=== PATIENT | male | born 1935 ===

== ENCOUNTER 2017-10-07 05:44 | Observation (INO) | payer MEDICARE ==
[2017-08-25 10:09] VITALS: BMI 22.8
[2017-10-07] MEDS ORDERED: Lidocaine 1%/Epinephrine 1:100000 30 ml vial IJ STA (07:33)
[2017-10-07] MEDS ORDERED: Bupivacaine HCl 0.25% PF (10 ml) Inj ONE (07:36)
[2017-10-07] MEDS ORDERED: ceFAZolin IV 2 gm in Dextrose 2 GM/50 ML BAG IVPB ONE (07:36)
[2017-10-07] MEDS ORDERED: Midazolam 2 MG/2 ML VIAL ONE (07:37)
[2017-10-07] MEDS ORDERED: Propofol 10 mg/ml Inj (20 ML) ONE (07:37)
[2017-10-07] MEDS ORDERED: Succinylcholine Chloride 20 mg/ml Syr (5 ml) IV ONE (07:39)
[2017-10-07] MEDS ORDERED: Sodium Chloride 0.9% 20 ML IV ONE (09:14)
[2017-10-07] MEDS ORDERED: Neostigmine Methylsulfate 3mg/3ml Syringe IV ONE (12:03)
[2017-10-07] MEDS ORDERED: Oxycodone/Acetaminophen 5/325 mg Tab PO ONE (12:28)
[2017-10-07] MEDS: HYDROmorphone 0.5 mg/0.5 ml ISec IVP PRN ×2 (13:11→15:21)
[2017-10-07] MEDS: Oxycodone/Acetaminophen 5/325 mg Tab PO PRN (22:28)
[2017-10-08 02:29] VITALS: RESP 20
[2017-10-08] MEDS: Oxycodone/Acetaminophen 5/325 mg Tab PO PRN ×3 (02:49→13:51)
--- NOTE | 2017-10-08 06:42 | CP.PCM.PN ---
Subjective - Date & Time of Evaluation Date of Evaluation: 10/08/17 Time of Evaluation: 06:45 - Subjective Subjective: General surgery progress note for Dr. Neal-Dayana Langston, PGY-1 Pt S & E at bedside. Pt reports continued trouble with weak urine stream overnight- put out 650 cc UOP. States he has lower ab pain/suprapubic pain. Woudl feel more comfortable staying for continued pain management. Objective - Vital Signs/Intake and Output Vital Signs (last 24 hours): Temp Pulse Resp BP Pulse Ox 97.5 F L 77 20 146/80 97 10/08/17 00:00 10/08/17 00:00 10/08/17 00:00 10/08/17 00:00 10/08/17 00:00 Intake and Output: 10/07/17 10/08/17 18:59 06:59 Intake Total 2370 100 Output Total 525 120 Balance 1845 -20 - Medications Medications: Current Medications Amlodipine Besylate (Norvasc) 5 mg PO DAILY [facility] Ibuprofen (Motrin Tab) 400 mg PO Q6 PRN PRN Reason: Fever >100.4 F Oxycodone/Acetaminophen (Percocet 5/325 Mg Tab) 1 tab PO Q4 PRN PRN Reason: Pain, moderate (4-7) Stop: 10/10/17 18:53 Last Admin: 10/08/17 02:49 Dose: 1 tab Pneumococcal Polyvalent Vaccine (Pneumovax 23 Vaccine) 0.5 ml IM .ONCE ONE Stop: 10/10/17 10:01 Sevelamer Carbonate (Renvela) 800 mg PO BID [facility] - Constitutional Appears: Non-toxic, No Acute Distress - Head Exam Head Exam: ATRAUMATIC, NORMAL INSPECTION, NORMOCEPHALIC - Eye Exam Eye Exam: EOMI, Normal appearance - ENT Exam ENT Exam: Mucous Membranes Moist, Normal Exam - Neck Exam Neck Exam: Full ROM, Normal Inspection - Respiratory Exam Respiratory Exam: NORMAL BREATHING PATTERN - Cardiovascular Exam Cardiovascular Exam: REGULAR RHYTHM, +S1, +S2 - GI/Abdominal Exam GI & Abdominal Exam: Guarding (LLQ), Soft, Tenderness (over surgical incision sites and suprapubic). absent: Distended, Firm Additional comments: surgical sites with dressings in place over abdomen- clean/dry-intact - Extremities Exam Extremities Exam: Normal Inspection. absent: Pedal Edema - Neurological Exam Neurological Exam: Alert, Awake, Oriented x3 - Psychiatric Exam Psychiatric exam: Anxious, Normal Affect - Skin Skin Exam: Dry, Intact, Normal Color, Warm Assessment and Plan - Assessment and Plan (Free Text) Assessment: 82M POD#1 s/p robotic repair of bilateral inguinal hernias with mesh and umbilical hernia repair Plan: cont pain mgmt encourage IS use OOBTC Encourage ambulation Will DW attending Ivis, PGY-1
[2017-10-08] MEDS: Enoxaparin 40 mg Syringe SC SCH (13:49)
[2017-10-08 13:55] LABS: BASO % 0.2 % (0.0-2.0); EOS % 0.1 % (0.0-4.0); HEMOGLOBIN 13.6 g/dL (12.0-18.0); LYMPH % 8.7 % (20.0-40.0); MEAN CELL VOLUME 87.8 fL (80.0-94.0); MEAN CORPUSCULAR HEMOGLOBIN 30.3 pg (27.0-31.0); MEAN CORPUSCULAR HGB CONC 34.5 g/dL (33.0-37.0); MEAN PLATELET VOLUME 9.6 fL (7.2-11.7); MONO # 0.5 K/uL (0.0-0.8); MONO % 4.8 % (0.0-10.0); NEUT # 9.5 K/uL (1.8-7.0); NEUT % 86.2 % (50.0-75.0); PLATELET COUNT 141 K/uL (130-400); RBC 4.49 Mil/uL (4.40-5.90); RED CELL DISTRIBUTION WIDTH 13.7 % (11.5-14.5)
[2017-10-08 14:29] LABS: BANDS 6 % (0-2); LYMPHOCYTE 10 % (20-40); MONOCYTE 6 % (0-10); NEUTROPHIL 78 % (50-75); TOTAL CELLS COUNTED 100
[2017-10-08 14:30] LABS: PLATELET ESTIMATE NORMAL (NORMAL)
[2017-10-08 14:33] LABS: OVALOCYTES SLIGHT
[2017-10-08 17:14] LABS: ALBUMIN 3.5 g/dL (3.5-5.0); CALCIUM 8.3 mg/dl (8.6-10.4)
--- NOTE | 2017-10-09 01:00 | OP ---
PROCEDURE DATE: 10/07/2017 PREOPERATIVE DIAGNOSES: 1. Right inguinal hernia. 2. Left inguinal hernia. 3. Umbilical hernia. POSTOPERATIVE DIAGNOSES: 1. Right inguinal hernia. 2. Left inguinal hernia. 3. Umbilical hernia. 4. Lipoma of the right spermatic cord. 5. Lipoma of the spermatic cord on left side. PROCEDURES DONE: 1. Robotic right inguinal hernia repair with a mesh. 2. Robotic excisional of lipoma of the cord, right side. 3. Robotic left inguinal hernia repair with a mesh. 4. Robotic excisional lipoma of the cord on the left side. 5. Robotic umbilical hernia repair with mesh. 6. Laparoscopic bilateral TAP block placement. SURGEON: Rodger Neal MD MANAGER EMERGENCY DEPARTMENT: CELINA Olivares and Bony Evans, PGY-4 resident. TYPE OF ANESTHESIA: General endotracheal tube anesthesia. ESTIMATED BLOOD LOSS: Around 20 mL. DRAINS: None. PATHOLOGY: 1. Lipoma of the cord of the left side. 2. Lipoma of the cord of the right side. 3. Umbilical hernial sac and content was sent for the pathology. COMPLICATIONS: None. INTRAOPERATIVE FINDINGS: The patient had a complete right inguinal hernia as well as a complete left indirect inguinal hernia and the patient also had a large lipoma of the cord on the left side and the patient had a small lipoma of the cord on the right side and the patient had a 2 x 2 cm umbilical hernia defect containing large amount of preperitoneal fat. DESCRIPTION OF PROCEDURE: On intraoperative steps, this 82-year-old male was diagnosed with bilateral inguinal hernia with umbilical hernia and the patient was consented for the robotic bilateral inguinal hernia repair with a mesh, with umbilical hernia. Patient was brought to the OR, placed supine on operating table. After induction of the anesthesia, abdomen was prepped and draped in usual sterile fashion. The Jordan catheter was placed. A 5-mm incision was made in the left upper quadrant using the Visiport technique. Using the Visiport technique, the pelvic cavity was entered. Pneumo was cerated. Two 8-mm ports were placed in the left flank and left lower quadrant and another port was placed in the supraumbilical region and another port was placed in the right upper quadrant. Now the robot was brought in. Camera arm as well as arm 1 and arm 2 were docked. First, a peritoneal dissection was done from the left ASIS up to the right ASIS and the peritoneum was dissected in the midline up to the space of Retzius, laterally to the lateral abdominal wall on the right side as well as the left side and the dissection was carried down on the right side to dissect the peritoneal sac from the surrounding structures and vas deferens as well as spermatic cord vessel. The complete removal of the sac was done and the proper hemostasis was achieved and inferior dissection of the sac was done up to the peritoneal reflection and now the similar dissection was done on the left side and the hernial sac was dissected free from the spermatic cord vessel and the vas deferens and inferior dissection done. Now the patient had a large lipoma of the cord on the left side that was reduced and dissected from the spermatic cord structures and it was sent off the table for pathology. The patient also had a lipoma of the cord on the right side that was also excised and it was sent off the table for pathology. Proper hemostasis was achieved and now the right anatomical mesh was placed and the mesh was implanted properly and the left anatomical mesh was placed and the mesh was implanted properly. After that the peritoneum was sutured with a 2-0 Vicryl V-Loc continuous sutures and after that the robot was undocked and redocked on the left flank, left lower quadrant, as well as left upper quadrant ports and the umbilical hernial defect was identified and hernial content and the sac was reduced back into the peritoneal cavity and it was sent off the table for pathology. The defect was closed with a #1 Prolene V-Loc suture in a continuous manner in 2 layers and a 7 cm circular mesh was placed and mesh was implanted with a tacker and after proper implantation of the mesh, and after undocking of the robot, the laparoscopic bilateral TAP block was given. The right and left side 30 mL of Marcaine was given and after a proper TAP block, all the ports were taken out under vision and pneumo was deflated. The umbilical port site was closed in 2 layers as well as all the port sites were closed in 2 layers, subcu with a 2-0 Vicryl, skin with a 4-0 Monocryl and dry sterile dressing was applied. The patient tolerated the procedure well. Count of the instrument and gauze was correct. There was no apparent complication. The patient was extubated in the OR and sent to the Postanesthesia Care Unit in stable condition. Rodger Neal MD 10/09/2017 [facility]
[2017-10-09] MEDS: Oxycodone/Acetaminophen 5/325 mg Tab PO PRN (06:35)
[2017-10-09 08:51] LABS: HEMOGLOBIN 13.1 g/dL (12.0-18.0); MEAN CELL VOLUME 87.6 fL (80.0-94.0); MEAN CORPUSCULAR HEMOGLOBIN 30.1 pg (27.0-31.0); MEAN CORPUSCULAR HGB CONC 34.4 g/dL (33.0-37.0); MEAN PLATELET VOLUME 9.5 fL (7.2-11.7); RBC 4.35 Mil/uL (4.40-5.90); RED CELL DISTRIBUTION WIDTH 13.5 % (11.5-14.5)
[2017-10-09] MEDS ORDERED: Influenza Vaccine 60 mcg/0.5 mL SYR (4YR UP) IM ONE ×2 (09:00→09:45)
[2017-10-09 09:37] LABS: ALB/GLOB RATIO 0.9 (1.0-2.1); ALBUMIN 3.8 g/dL (3.5-5.0); CALCIUM 8.9 mg/dl (8.6-10.4)
[2017-10-09] MEDS: Enoxaparin 40 mg Syringe SC SCH (09:50)
--- NOTE | 2017-10-09 10:12 | CP.PCM.PN ---
<Juaquin Brandon - Last Filed: 10/09/17 10:09> Subjective - Date & Time of Evaluation Date of Evaluation: 10/09/17 Time of Evaluation: 10:10 - Subjective Subjective: Surgery Pt s&e. NAEON. Denies F/C/N/V/D/CP/SOB. TOlerating diet. Pain controlled. Objective - Vital Signs/Intake and Output Vital Signs (last 24 hours): Temp Pulse Resp BP Pulse Ox 98.6 F 94 H 20 149/79 95 10/09/17 08:00 10/09/17 08:00 10/09/17 08:00 10/09/17 08:00 10/09/17 08:00 Intake and Output: 10/09/17 10/09/17 06:59 18:59 Intake Total 480 Balance 480 - Medications Medications: Current Medications Amlodipine Besylate (Norvasc) 5 mg PO DAILY [facility] Last Admin: 10/09/17 09:50 Dose: 5 mg Enoxaparin Sodium (Lovenox) 40 mg SC DAILY [facility] Last Admin: 10/09/17 09:50 Dose: 40 mg Ibuprofen (Motrin Tab) 400 mg PO Q6 PRN PRN Reason: Fever >100.4 F Oxycodone/Acetaminophen (Percocet 5/325 Mg Tab) 1 tab PO Q4 PRN PRN Reason: Pain, moderate (4-7) Stop: 10/10/17 18:53 Last Admin: 10/09/17 06:35 Dose: 1 tab Sevelamer Carbonate (Renvela) 800 mg PO BID [facility] Last Admin: 10/09/17 09:50 Dose: 800 mg - Labs Labs: 10/09/17 08:38 10/09/17 09:22 - Constitutional Appears: No Acute Distress - Head Exam Head Exam: ATRAUMATIC, NORMAL INSPECTION, NORMOCEPHALIC - Eye Exam Eye Exam: EOMI, Normal appearance, PERRL Pupil Exam: NORMAL ACCOMODATION, PERRL - ENT Exam ENT Exam: Mucous Membranes Moist, Normal Exam - Neck Exam Neck Exam: Full ROM, Normal Inspection. absent: Lymphadenopathy - Respiratory Exam Respiratory Exam: Clear to Ausculation Bilateral, NORMAL BREATHING PATTERN - Cardiovascular Exam Cardiovascular Exam: REGULAR RHYTHM, +S1, +S2. absent: Murmur - GI/Abdominal Exam GI & Abdominal Exam: Soft, Tenderness, Normal Bowel Sounds. absent: Distended, Firm, Guarding - Exam Exam: NORMAL INSPECTION - Extremities Exam Extremities Exam: Full ROM, Normal Capillary Refill, Normal Inspection. absent : Joint Swelling, Pedal Edema - Back Exam Back Exam: NORMAL INSPECTION - Neurological Exam Neurological Exam: Alert, Awake, CN II-XII Intact, Normal Gait, Oriented x3 - Psychiatric Exam Psychiatric exam: Normal Affect, Normal Mood - Skin Skin Exam: Dry, Intact, Normal Color, Warm Assessment and Plan - Assessment and Plan (Free Text) Assessment: POD 1 s/p robotic hernia repair -pain control -Ambulate -IS -Reg diet -Likely DC later today Will DW Dr. Neal <Rodger Neal - Last Filed: 10/09/17 15:57> Objective - Vital Signs/Intake and Output Vital Signs (last 24 hours): Temp Pulse Resp BP Pulse Ox 98.6 F 94 H 20 149/79 95 10/09/17 08:00 10/09/17 08:00 10/09/17 08:00 10/09/17 08:00 10/09/17 08:00 Intake and Output: 10/09/17 10/09/17 06:59 18:59 Intake Total 480 Balance 480 - Medications Medications: Current Medications Amlodipine Besylate (Norvasc) 5 mg PO DAILY [facility] Last Admin: 10/09/17 09:50 Dose: 5 mg Enoxaparin Sodium (Lovenox) 40 mg SC DAILY [facility] Last Admin: 10/09/17 09:50 Dose: 40 mg Ibuprofen (Motrin Tab) 400 mg PO Q6 PRN PRN Reason: Fever >100.4 F Oxycodone/Acetaminophen (Percocet 5/325 Mg Tab) 1 tab PO Q4 PRN PRN Reason: Pain, moderate (4-7) Stop: 10/10/17 18:53 Last Admin: 10/09/17 06:35 Dose: 1 tab Sevelamer Carbonate (Renvela) 800 mg PO BID [facility] Last Admin: 10/09/17 09:50 Dose: 800 mg - Labs Labs: 10/09/17 08:38 10/09/17 09:22 Attending/Attestation - Attestation I have personally seen and examined this patient.: Yes I have fully participated in the care of the patient.: Yes I have reviewed all pertinent clinical information, including history, physical exam and plan: Yes Notes (Text): Pt was seen and examined at bedside Agree with above note and assessment Pt is improving clinically Start Flomax DC plan local wound care Plan d.w pt in detail.
--- NOTE | 2017-10-09 11:16 | CP.PCM.CON ---
History of Present Illness - History of Present Illness History of Present Illness: Reason for consult: Maedical managment of HTN in post op pateint, 82M POD#1 s/p robotic repair of bilateral inguinal hernias with mesh and umbilical hernia repair HPI: Pt is a 82 year old male who has PMH significant for HTN, CKD who underwent Robotic inguinal hernia repair, pt chasidy any chest pain, shortness of breath, c/o mild pain in pot op area inguinal area is dressed. Past Patient History - Infectious Disease Hx of Infectious Diseases: None - Past Medical History & Family History Past Medical History?: Yes - Past Social History Smoking Status: Never Smoked - CARDIAC Hx Cardiac Disorders: Yes Hx Hypertension: Yes - PULMONARY Hx Respiratory Disorders: No - NEUROLOGICAL Hx Neurological Disorder: Yes Hx Dizziness: Yes (FROM LOW BP) - HEENT Hx HEENT Problems: No - RENAL Other/Comment: Right Kidney removed 3 years ago. 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, L total shoulder replacement reverse - ANESTHESIA Hx Anesthesia: Yes Hx Anesthesia Reactions: No Hx Malignant Hyperthermia: No Has any member of the family had a problem w/ anesthesia?: No Meds Allergies/Adverse Reactions: Allergies Allergy/AdvReac Type Severity Reaction Status Date / Time No Known Allergies Allergy Verified 09/13/16 09:08 - Medications Medications: Current Medications Amlodipine Besylate (Norvasc) 5 mg PO DAILY [facility] Last Admin: 10/09/17 09:50 Dose: 5 mg Enoxaparin Sodium (Lovenox) 40 mg SC DAILY [facility] Last Admin: 10/09/17 09:50 Dose: 40 mg Ibuprofen (Motrin Tab) 400 mg PO Q6 PRN PRN Reason: Fever >100.4 F Oxycodone/Acetaminophen (Percocet 5/325 Mg Tab) 1 tab PO Q4 PRN PRN Reason: Pain, moderate (4-7) Stop: 10/10/17 18:53 Last Admin: 10/09/17 06:35 Dose: 1 tab Sevelamer Carbonate (Renvela) 800 mg PO BID [facility] Last Admin: 10/09/17 09:50 Dose: 800 mg Physical Exam - Constitutional Appears: No Acute Distress - Head Exam Head Exam: ATRAUMATIC, NORMAL INSPECTION, NORMOCEPHALIC - Eye Exam Eye Exam: EOMI, Normal appearance, PERRL Pupil Exam: NORMAL ACCOMODATION, PERRL - Respiratory Exam Respiratory Exam: Clear to Auscultation Bilateral, NORMAL BREATHING PATTERN - Cardiovascular Exam Cardiovascular Exam: REGULAR RHYTHM - GI/Abdominal Exam GI & Abdominal Exam: Normal Bowel Sounds, Soft. absent: Tenderness - Rectal Exam Rectal Exam: Deferred - Neurological Exam Neurological exam: Alert, CN II-XII Intact, Oriented x3 - Skin Skin Exam: Dry Additional comments: senile turgor Results - Vital Signs Recent Vital Signs: Last Vital Signs Temp 98.6 F 10/09/17 08:00 Pulse 94 H 10/09/17 08:00 Resp 20 10/09/17 08:00 BP 149/79 10/09/17 08:00 Pulse Ox 95 10/09/17 08:00 - Labs Result Diagrams: 10/09/17 08:38 10/09/17 09:22 Labs: Laboratory Results - last 24 hr 10/08/17 10/08/17 10/09/17 13:52 16:52 08:38 WBC 11.0 H D 11.0 H RBC 4.49 4.35 L Hgb 13.6 13.1 Hct 39.4 38.1 MCV 87.8 87.6 MCH 30.3 30.1 MCHC 34.5 34.4 RDW 13.7 13.5 Plt Count 141 134 MPV 9.6 9.5 Neut % (Auto) 86.2 H Lymph % (Auto) 8.7 L [place] % (Auto) 4.8 Eos % (Auto) 0.1 Baso % (Auto) 0.2 Neut # (Auto) 9.5 H Lymph # (Auto) 1.0 [place] # (Auto) 0.5 Eos # (Auto) 0.0 Baso # (Auto) 0.0 Neutrophils % (Manual) 78 H Band Neutrophils % 6 H Lymphocytes % (Manual) 10 L Monocytes % (Manual) 6 Platelet Estimate Normal Ovalocytes Slight Sodium 135 Potassium 4.2 Chloride 99 Carbon Dioxide 25 Anion Gap 15 BUN 21 H Creatinine 1.4 Est GFR ( Amer) 59 Est GFR (Non-Af Amer) 49 Random Glucose 100 Calcium 8.3 L Total Bilirubin 0.7 AST 23 ALT 11 L D Alkaline Phosphatase 58 Total Protein 6.8 Albumin 3.5 Globulin 3.3 Albumin/Globulin Ratio 1.0 10/09/17 09:22 WBC RBC Hgb Hct MCV MCH MCHC RDW Plt Count MPV Neut % (Auto) Lymph % (Auto) [place] % (Auto) Eos % (Auto) Baso % (Auto) Neut # (Auto) Lymph # (Auto) [place] # (Auto) Eos # (Auto) Baso # (Auto) Neutrophils % (Manual) Band Neutrophils % Lymphocytes % (Manual) Monocytes % (Manual) Platelet Estimate Ovalocytes Sodium 137 Potassium 4.0 Chloride 100 Carbon Dioxide 26 Anion Gap 14 BUN 24 H Creatinine 1.6 H Est GFR ( Amer) 51 Est GFR (Non-Af Amer) 42 Random Glucose 103 Calcium 8.9 Total Bilirubin 0.8 AST 34 ALT 20 L D Alkaline Phosphatase 72 Total Protein 7.8 Albumin 3.8 Globulin 4.0 H Albumin/Globulin Ratio 0.9 L Assessment & Plan (1) HTN (hypertension) Status: Acute (2) CKD (chronic kidney disease) Status: Acute (3) S/P inguinal hernia repair Assessment and Plan: 82M POD#1 s/p robotic repair of bilateral inguinal hernias with mesh and umbilical hernia repair Plan: cont pain mgmt encourage IS use OOBTC Encourage ambulation Status: Acute
--- NOTE | 2017-10-09 11:20 | CP.PCM.PN ---
Subjective - Date & Time of Evaluation Date of Evaluation: 10/09/17 Time of Evaluation: 18:30 - Subjective Subjective: Pt seen and evalauted, feeling better, post op, B.P control, denies any hcest pain, shortness of breath, cough POD 1 s/p robotic hernia repair -pain control -Ambulate -IS -Reg diet -Likely DC later today Objective - Vital Signs/Intake and Output Vital Signs (last 24 hours): Temp Pulse Resp BP Pulse Ox 98.6 F 94 H 20 149/79 95 10/09/17 08:00 10/09/17 08:00 10/09/17 08:00 10/09/17 08:00 10/09/17 08:00 Intake and Output: 10/09/17 10/09/17 06:59 18:59 Intake Total 480 Balance 480 - Medications Medications: Current Medications Amlodipine Besylate (Norvasc) 5 mg PO DAILY [facility] Last Admin: 10/09/17 09:50 Dose: 5 mg Enoxaparin Sodium (Lovenox) 40 mg SC DAILY [facility] Last Admin: 10/09/17 09:50 Dose: 40 mg Ibuprofen (Motrin Tab) 400 mg PO Q6 PRN PRN Reason: Fever >100.4 F Oxycodone/Acetaminophen (Percocet 5/325 Mg Tab) 1 tab PO Q4 PRN PRN Reason: Pain, moderate (4-7) Stop: 10/10/17 18:53 Last Admin: 10/09/17 06:35 Dose: 1 tab Sevelamer Carbonate (Renvela) 800 mg PO BID [facility] Last Admin: 10/09/17 09:50 Dose: 800 mg - Labs Labs: 10/09/17 08:38 10/09/17 09:22 Assessment and Plan (1) HTN (hypertension) Status: Acute (2) CKD (chronic kidney disease) Status: Acute (3) S/P inguinal hernia repair Status: Acute
[2017-10-09] MEDS ORDERED: Enoxaparin 40 mg Syringe SC SCH (14:00)
[2017-10-10] MEDS: Enoxaparin 40 mg Syringe SC SCH (09:13)
[2017-10-10 09:34] VITALS: BP 122/70; PULSE 90; TEMP 98.2; O2SAT 96
[2017-10-10] MEDS ORDERED: Pneumococcal 23-Valent Vaccine IM ONE (10:00)
[2017-10-10] MEDS ORDERED: Influenza Vaccine 60 mcg/0.5 mL SYR (4YR UP) IM ONE (10:00)
--- NOTE | 2017-10-10 12:55 | CP.PCM.DIS ---
Provider - Provider Date of Admission: 10/07/17 18:52 Attending physician: Rodger Neal MD Primary care physician: Dr. Neal Consults: Internal medicine Time Spent in preparation of Discharge (in minutes): 35 Diagnosis - Discharge Diagnosis (1) Hx of umbilical hernia repair Status: Acute Hospital Course - Lab Results Lab Results: Most Recent Lab Values WBC 11.0 K/uL (4.8-10.8) H 10/09/17 08:38 RBC 4.35 Mil/uL (4.40-5.90) L 10/09/17 08:38 Hgb 13.1 g/dL (12.0-18.0) 10/09/17 08:38 Hct 38.1 % (35.0-51.0) 10/09/17 08:38 MCV 87.6 fL (80.0-94.0) 10/09/17 08:38 MCH 30.1 pg (27.0-31.0) 10/09/17 08:38 MCHC 34.4 g/dL (33.0-37.0) 10/09/17 08:38 RDW 13.5 % (11.5-14.5) 10/09/17 08:38 Plt Count 134 K/uL (130-400) 10/09/17 08:38 MPV 9.5 fL (7.2-11.7) 10/09/17 08:38 Neut % (Auto) 86.2 % (50.0-75.0) H 10/08/17 13:52 Lymph % (Auto) 8.7 % (20.0-40.0) L 10/08/17 13:52 [place] % (Auto) 4.8 % (0.0-10.0) 10/08/17 13:52 Eos % (Auto) 0.1 % (0.0-4.0) 10/08/17 13:52 Baso % (Auto) 0.2 % (0.0-2.0) 10/08/17 13:52 Neut # (Auto) 9.5 K/uL (1.8-7.0) H 10/08/17 13:52 Lymph # (Auto) 1.0 K/uL (1.0-4.3) 10/08/17 13:52 [place] # (Auto) 0.5 K/uL (0.0-0.8) 10/08/17 13:52 Eos # (Auto) 0.0 K/uL (0.0-0.7) 10/08/17 13:52 Baso # (Auto) 0.0 K/uL (0.0-0.2) 10/08/17 13:52 Neutrophils % (Manual) 78 % (50-75) H 10/08/17 13:52 Band Neutrophils % 6 % (0-2) H 10/08/17 13:52 Lymphocytes % (Manual) 10 % (20-40) L 10/08/17 13:52 Monocytes % (Manual) 6 % (0-10) 10/08/17 13:52 Platelet Estimate Normal (NORMAL) 10/08/17 13:52 Ovalocytes Slight 10/08/17 13:52 Sodium 137 mmol/L (132-148) 10/09/17 09:22 Potassium 4.0 mmol/L (3.6-5.2) 10/09/17 09:22 Chloride 100 mmol/L (98-107) 10/09/17 09:22 Carbon Dioxide 26 mmol/L (22-30) 10/09/17 09:22 Anion Gap 14 (10-20) 10/09/17 09:22 BUN 24 mg/dL (9-20) H 10/09/17 09:22 Creatinine 1.6 mg/dL (0.8-1.5) H 10/09/17 09:22 Est GFR ( Amer) 51 10/09/17 09:22 Est GFR (Non-Af Amer) 42 10/09/17 09:22 Random Glucose 103 mg/dL (75-110) 10/09/17 09:22 Calcium 8.9 mg/dl (8.6-10.4) 10/09/17 09:22 Total Bilirubin 0.8 mg/dL (0.2-1.3) 10/09/17 09:22 AST 34 U/L (17-59) 10/09/17 09:22 ALT 20 U/L (21-72) L D 10/09/17 09:22 Alkaline Phosphatase 72 U/L (38-126) 10/09/17 09:22 Total Protein 7.8 g/dL (6.3-8.3) 10/09/17 09:22 Albumin 3.8 g/dL (3.5-5.0) 10/09/17 09:22 Globulin 4.0 gm/dL (2.2-3.9) H 10/09/17 09:22 Albumin/Globulin Ratio 0.9 (1.0-2.1) L 10/09/17 09:22 - Hospital Course Hospital Course: 82M w/PMH sig for bilateral inguinal hernias and umbilical hernia- POD#3. Pt kept s/p robotic bilateral inguinal hernia repair with umbilical hernia repair on Tuesday due to pain control requirements and poor urination. Pt kept over the weekend with increased urine output on Flomax, pain well controlled. Pt stable and ready for discharge home with pain medications and Flomax- will follow up with Dr. Neal. Diagnosis bilateral inguinal hernias robotic bilateral inguinal hernia repair with mesh umbilical hernia repair HTN Discharge Exam - Head Exam Head Exam: ATRAUMATIC, NORMAL INSPECTION, NORMOCEPHALIC - Eye Exam Eye Exam: EOMI, Normal appearance - ENT Exam ENT Exam: Mucous Membranes Moist, Normal Exam - Neck Exam Neck exam: Full Rom - Respiratory Exam Respiratory Exam: NORMAL BREATHING PATTERN, UNREMARKABLE - Cardiovascular Exam Cardiovascular Exam: REGULAR RHYTHM, +S1, +S2 - GI/Abdominal Exam GI & Abdominal Exam: Soft, Tenderness (over surgical sites), Unremarkable. absent: Distended, Guarding, Hernia - Extremities Exam Extremities exam: normal inspection - Neurological Exam Neurological exam: Alert, Oriented x3 - Psychiatric Exam Psychiatric exam: Normal Affect, Normal Mood - Skin Skin Exam: Dry, Intact, Normal Color, Warm Additional comments: abdominal dressings clean/dry/intact Discharge Plan - Discharge Medications Prescriptions: Tamsulosin HCl [Flomax] 0.4 mg PO DAILY #14 cap.er.24h - Follow Up Plan Condition: GOOD Disposition: HOME/ ROUTINE Additional Instructions: Please follow up with Dr. Neal in the office in 1-2 weeks after discharge. If you take the pain medications at home, please take the stool softener at the same time. Ok to shower tomorrow, you may remove the outer larger bandaids from the surgical sites. Underneath are ster-stripes- these will fall off on their own, do not pull them off. Referrals: Rodger Neal MD [Staff Provider] -
== END 2017-10-10 15:20 | disposition home or self-care (01) ==
LOC: C.SDS 05:44 → C.5S 18:52
PROVIDERS: ADMIT Surgery Surgical Critical Care; ATTEND Surgery Surgical Critical Care
DX: K40.20 Bilateral inguinal hernia, without obstruction or gangrene, not specified as recurrent (principal); K42.9 Umbilical hernia without obstruction or gangrene; D17.6 Benign lipomatous neoplasm of spermatic cord; G89.18 Other acute postprocedural pain; I12.9 Hypertensive chronic kidney disease with stage 1 through stage 4 chronic kidney disease, or unspecified chronic kidney disease; N18.9 Chronic kidney disease, unspecified; Z90.5 Acquired absence of kidney; Z90.49 Acquired absence of other specified parts of digestive tract; Z23 Encounter for immunization
CPT/HCPCS: 36415; 49650; 49652; 80053; 85025; 85027; 88302; 88304; 90674; 97116; 97161; C1781; G0008; G0378; G8978; G8979; G8980; J0690; J1170; J1650; J2001; J2250; J2704; J2710; J3010

== ENCOUNTER 2017-10-12 17:28 | Emergency (ER) | payer MEDICARE ==
[2017-10-12 17:28] VITALS: BMI 22.8
--- NOTE | 2017-10-12 17:58 | C.PDOC ---
History Of Present Illness 82 y/o M c PMHx HTN, recent robotic bilateral inguinal hernia repair, umbilical hernia repair p/w dizziness x 1 day. Patient states that he is having intermittent room moving sensation today, feeling unsteady. He states he does not have the symptoms currently because he is not moving around. Denies fever, chills, trauma, ear pain, vomiting. He also notes that he is urinating a very small amount. Discharge summary reviewed, patient appeared to have difficulty with urination that protracted his hospitalization. Patient denies any abdominal pain out or proportion to what would be expected after surgery. Time Seen by Provider: 10/12/17 17:34 Chief Complaint (Nursing): Dizziness/Lightheaded Past Medical History Vital Signs: Last Vital Signs Temp 98.9 F 10/12/17 17:31 Pulse 93 H 10/12/17 17:31 Resp 20 10/12/17 17:31 BP 130/74 10/12/17 17:31 Pulse Ox 99 10/12/17 17:58 - Medical History PMH: Fractures (LEFT SHOULDER/LEFT LEG NON DISPLACED ACCIDENT 06/25/16), HTN Surgical History: Cholecystectomy - [facility] Procedures HOME MANAGEMENT TREATMENT USING ASSIST EQUIPMENT (09/25/16) REPLACE OF L SHOULDER JT WITH REV BL & SOCKT, OPEN APPROACH (09/22/16) REPOSITION LEFT UPPER ARM TENDON, OPEN APPROACH (09/22/16) THERAPEUTIC EXERCISE TREATMENT OF MUSCULOSK LOW BACK/LE (09/25/16) Family History: States: Unknown Family Hx - Social History Hx Alcohol Use: No Hx Substance Use: No - Immunization History Hx Tetanus Toxoid Vaccination: No Hx Influenza Vaccination: Yes Hx Pneumococcal Vaccination: No Review Of Systems Except As Marked, All Systems Reviewed And Found Negative. Constitutional: Negative for: Fever Cardiovascular: Negative for: Chest Pain Physical Exam - Physical Exam Additional Physical Exam Comments: Gen: NAD Head: NC Eyes: PERRL ENT: MMM Neck: Supple CV: Regular rate Lungs: CTA b/l Abd: Dressing clean and dry, nontender Back: No CVA tenderness : Edematous scrotum and shaft Ext: Nontender Skin: No rash Neuro: Alert, positive [place] Hall[place]. ED Course And Treatment - Laboratory Results Result Diagrams: 10/12/17 18:07 10/12/17 18:07 O2 Sat by Pulse Oximetry: 99 Medical Decision Making Medical Decision Making: Differential includes dizziness from poor PO intake and BPPV. Will treat with Meclizine and reassess and check labs for hydration status. Will check bladder scan for patient's report of decreased UOP. Patient found to have acute anemia and acute renal insufficiency. Will keep for further evaluation and treatment, accepted by Medicine plant protection guard Dr. Tanya Toure and consult placed for patient's surgeon. Disposition Discussed With Dr.: Destini Toure - Disposition Disposition: HOSPITALIZED Disposition Time: 18:34 Condition: GUARDED Forms: [facility] (Czech) - Clinical Impression Clinical Impression: Acute blood loss anemia, Acute renal insufficiency
[2017-10-12 18:13] LABS: BASO % 0.3 % (0.0-2.0); EOS # 0.3 K/uL (0.0-0.7); EOS % 5.8 % (0.0-4.0); LYMPH # 0.5 K/uL (1.0-4.3); LYMPH % 9.1 % (20.0-40.0); MEAN CELL VOLUME 87.8 fL (80.0-94.0); MEAN CORPUSCULAR HEMOGLOBIN 29.4 pg (27.0-31.0); MEAN CORPUSCULAR HGB CONC 33.4 g/dL (33.0-37.0); MEAN PLATELET VOLUME 9.6 fL (7.2-11.7); MONO # 0.4 K/uL (0.0-0.8); MONO % 8.5 % (0.0-10.0); NEUT # 3.9 K/uL (1.8-7.0); NEUT % 76.3 % (50.0-75.0); NRBC % 0.1 % (0.0-2.0); PLATELET COUNT 153 K/uL (130-400); RBC 3.72 Mil/uL (4.40-5.90); RED CELL DISTRIBUTION WIDTH 13.4 % (11.5-14.5); WHITE BLOOD COUNT 5.1 K/uL (4.8-10.8)
[2017-10-12 18:18] LABS: URINE BILIRUBIN NEGATIVE (NEGATIVE); URINE BLOOD NEGATIVE (NEGATIVE); URINE CLARITY Clear (Clear); URINE COLOR Yellow (YELLOW); URINE GLUCOSE (UA) NORMAL (Normal); URINE LEUKOCYTE ESTERASE NEG Leu/uL (Negative); URINE NITRATE NEGATIVE (NEGATIVE); URINE PROTEIN NEGATIVE (NEGATIVE); URINE UROBILINOGEN NORMAL mg/dL (0.2-1.0)
[2017-10-12 18:18] LABS: HEMOGLOBIN 10.9 g/dL (12.0-18.0)
[2017-10-12 18:25] LABS: ALB/GLOB RATIO 0.9 (1.0-2.1); ALBUMIN 3.6 g/dL (3.5-5.0); CALCIUM 8.4 mg/dl (8.6-10.4)
[2017-10-12 19:08] LABS: EOSINOPHIL 9 % (0-4); LYMPHOCYTE 6 % (20-40); MONOCYTE 11 % (0-10); NEUTROPHIL 74 % (50-75); PLATELET ESTIMATE NORMAL (NORMAL); TOTAL CELLS COUNTED 100
--- NOTE | 2017-10-12 20:24 | CP.PCM.CON ---
<Roger Portillo - Last Filed: 10/12/17 21:55> History of Present Illness - History of Present Illness History of Present Illness: General Surgery- Dr. Neal 82M pmhx significant for bilateral inguinal hernias and umbilical hernia repair - POD#5. was kept s/p robotic bilateral inguinal hernia repair with umbilical hernia repair on Tuesday due to pain control requirements and poor urination. Pt kept over the weekend with increased urine output on Flomax, pain well controlled. Pt was subsequently discharged and returned to the ED today due to lower abdominal pain and poor urination. Malone was placed in the ED and >1000 cc was relieved. PMH: HTN, RCC PSH: b/l robotic inguinal hernia and umbilical hernia repair, open alvaro (8yrs ago), R. Nephrectomy, shoulder surgery ALL: NKDA SocialHx: denies ETOH, tobacco, recreational drug use Review of Systems - Review of Systems All systems: reviewed and no additional remarkable complaints except - Constitutional Constitutional: As Per HPI Past Patient History - Infectious Disease Hx of Infectious Diseases: None - Past Medical History & Family History Past Medical History?: Yes - Past Social History Smoking Status: Never Smoked - CARDIAC Hx Hypertension: Yes - PULMONARY Hx Respiratory Disorders: No - NEUROLOGICAL Hx Neurological Disorder: Yes Hx Dizziness: Yes (FROM LOW BP) - HEENT Hx HEENT Problems: No - ENDOCRINE/METABOLIC Hx Endocrine Disorders: No - HEMATOLOGICAL/ONCOLOGICAL Hx Blood Disorders: Yes - INTEGUMENTARY Hx Dermatological Problems: No - MUSCULOSKELETAL/RHEUMATOLOGICAL Hx Fractures: Yes (LEFT SHOULDER/LEFT LEG NON DISPLACED ACCIDENT 06/25/16) - GASTROINTESTINAL Hx Gastrointestinal Disorders: No - GENITOURINARY/GYNECOLOGICAL Hx Genitourinary Disorders: No - PSYCHIATRIC Hx Substance Use: No - SURGICAL HISTORY Hx Cholecystectomy: Yes - ANESTHESIA Hx Anesthesia: Yes Hx Anesthesia Reactions: No Hx Malignant Hyperthermia: No Meds Allergies/Adverse Reactions: Allergies Allergy/AdvReac Type Severity Reaction Status Date / Time No Known Allergies Allergy Verified 10/12/17 17:33 Physical Exam - Constitutional Appears: Non-toxic, No Acute Distress - Head Exam Head Exam: ATRAUMATIC - Eye Exam Eye Exam: EOMI. absent: Scleral icterus - ENT Exam ENT Exam: Mucous Membranes Moist - Respiratory Exam Respiratory Exam: NORMAL BREATHING PATTERN. absent: Accessory Muscle Use, Respiratory Distress - Cardiovascular Exam Cardiovascular Exam: +S1, +S2. absent: Bradycardia, Tachycardia - GI/Abdominal Exam GI & Abdominal Exam: Soft, Tenderness. absent: Distended, Firm, Guarding, Hernia, Rigid Additional comments: appropriately tender around incision minimal suprapubic tenderness - Extremities Exam Extremities exam: Positive for: normal inspection. Negative for: calf tenderness - Neurological Exam Neurological exam: Alert, Oriented x3 - Skin Skin Exam: Warm Results - Vital Signs Recent Vital Signs: Last Vital Signs Temp 98.9 F 10/12/17 17:31 Pulse 93 H 10/12/17 17:31 Resp 20 10/12/17 17:31 BP 130/74 10/12/17 17:31 Pulse Ox 99 10/12/17 18:35 - Labs Result Diagrams: 10/12/17 18:07 10/12/17 18:07 Labs: Laboratory Results - last 24 hr 10/12/17 10/12/17 10/12/17 18:07 18:07 18:12 WBC 5.1 D RBC 3.72 L Hgb 10.9 L D Hct 32.7 L MCV 87.8 MCH 29.4 MCHC 33.4 RDW 13.4 Plt Count 153 MPV 9.6 Neut % (Auto) 76.3 H Lymph % (Auto) 9.1 L [place] % (Auto) 8.5 Eos % (Auto) 5.8 H Baso % (Auto) 0.3 Neut # (Auto) 3.9 Lymph # (Auto) 0.5 L [place] # (Auto) 0.4 Eos # (Auto) 0.3 Baso # (Auto) 0.0 Neutrophils % (Manual) 74 Lymphocytes % (Manual) 6 L Monocytes % (Manual) 11 H Eosinophils % (Manual) 9 H Platelet Estimate Normal RBC Morphology Normal Sodium 135 Potassium 4.5 Chloride 103 Carbon Dioxide 23 Anion Gap 13 BUN 41 H Creatinine 2.6 H Est GFR ( Amer) 29 Est GFR (Non-Af Amer) 24 Random Glucose 87 Calcium 8.4 L Total Bilirubin 0.8 AST 85 H D ALT 58 Alkaline Phosphatase 102 Total Protein 7.4 Albumin 3.6 Globulin 3.9 Albumin/Globulin Ratio 0.9 L Urine Color Yellow Urine Clarity Clear Urine pH 5.0 Ur Specific [place] 1.013 Urine Protein Negative Urine Glucose (UA) Normal Urine Ketones Negative Urine Blood Negative Urine Nitrate Negative Urine Bilirubin Negative Urine Urobilinogen Normal Ur Leukocyte Esterase Neg Urine WBC (Auto) 2 Urine RBC (Auto) 2 Assessment & Plan - Assessment and Plan (Free Text) Assessment: 82M s/p robotic bilateral inguinal hernia repair POD#5 reports dizziness after taking pain medication, and urinary retention Plan: - c/s Urology- all recs appreciated - will keep malone in for now - encourage OOB and ambulation - regular diet - monitor urine output - further recs per Dr. Val Portillo PGY1 <Rodger Neal - Last Filed: 10/16/17 17:57> Results - Vital Signs Recent Vital Signs: Last Vital Signs Temp 97.5 F L 10/13/17 13:54 Pulse 85 10/13/17 13:54 Resp 16 10/13/17 13:54 BP 131/81 10/13/17 13:54 Pulse Ox 97 10/13/17 13:54 - Labs Result Diagrams: 10/12/17 18:07 10/12/17 18:07 Attending/Attestation - Attestation I have personally seen and examined this patient.: Yes I have fully participated in the care of the patient.: Yes I have reviewed all pertinent clinical information: Yes Notes (Text): Pt was seen and examined at bedside Agree with above note and assessment Pt with Abdominal pain and Lower abdominal tenderness Pt with BPH and Urinary retention Ass: BPH Urinary retention Urology consult Leg bag Reg diet Flomax and Finesteride Plan d.w pt in detail Risk and benefit explained in detail.
--- NOTE | 2017-10-12 23:07 | CP.PCM.HP ---
Past Patient History - Infectious Disease Hx of Infectious Diseases: None - Past Medical History & Family History Past Medical History?: Yes - Past Social History Smoking Status: Never Smoked - CARDIAC Hx Hypertension: Yes - PULMONARY Hx Respiratory Disorders: No - NEUROLOGICAL Hx Neurological Disorder: Yes Hx Dizziness: Yes (FROM LOW BP) - HEENT Hx HEENT Problems: No - ENDOCRINE/METABOLIC Hx Endocrine Disorders: No - HEMATOLOGICAL/ONCOLOGICAL Hx Blood Disorders: Yes - INTEGUMENTARY Hx Dermatological Problems: No - MUSCULOSKELETAL/RHEUMATOLOGICAL Hx Fractures: Yes (LEFT SHOULDER/LEFT LEG NON DISPLACED ACCIDENT 06/25/16) - GASTROINTESTINAL Hx Gastrointestinal Disorders: No - GENITOURINARY/GYNECOLOGICAL Hx Genitourinary Disorders: No - PSYCHIATRIC Hx Substance Use: No - SURGICAL HISTORY Hx Cholecystectomy: Yes - ANESTHESIA Hx Anesthesia: Yes Hx Anesthesia Reactions: No Hx Malignant Hyperthermia: No Meds Allergies/Adverse Reactions: Allergies Allergy/AdvReac Type Severity Reaction Status Date / Time No Known Allergies Allergy Verified 10/12/17 17:33 Results - Vital Signs Recent Vital Signs: Last Vital Signs Temp 98.9 F 10/12/17 17:31 Pulse 93 H 10/12/17 22:21 Resp 19 10/12/17 22:21 BP 128/78 10/12/17 22:21 Pulse Ox 97 10/12/17 22:21 - Labs Result Diagrams: 10/12/17 18:07 10/12/17 18:07 Labs: Laboratory Results - last 24 hr 10/12/17 10/12/17 10/12/17 18:07 18:07 18:12 WBC 5.1 D RBC 3.72 L Hgb 10.9 L D Hct 32.7 L MCV 87.8 MCH 29.4 MCHC 33.4 RDW 13.4 Plt Count 153 MPV 9.6 Neut % (Auto) 76.3 H Lymph % (Auto) 9.1 L [place] % (Auto) 8.5 Eos % (Auto) 5.8 H Baso % (Auto) 0.3 Neut # (Auto) 3.9 Lymph # (Auto) 0.5 L [place] # (Auto) 0.4 Eos # (Auto) 0.3 Baso # (Auto) 0.0 Neutrophils % (Manual) 74 Lymphocytes % (Manual) 6 L Monocytes % (Manual) 11 H Eosinophils % (Manual) 9 H Platelet Estimate Normal RBC Morphology Normal Sodium 135 Potassium 4.5 Chloride 103 Carbon Dioxide 23 Anion Gap 13 BUN 41 H Creatinine 2.6 H Est GFR ( Amer) 29 Est GFR (Non-Af Amer) 24 Random Glucose 87 Calcium 8.4 L Total Bilirubin 0.8 AST 85 H D ALT 58 Alkaline Phosphatase 102 Total Protein 7.4 Albumin 3.6 Globulin 3.9 Albumin/Globulin Ratio 0.9 L Urine Color Yellow Urine Clarity Clear Urine pH 5.0 Ur Specific [place] 1.013 Urine Protein Negative Urine Glucose (UA) Normal Urine Ketones Negative Urine Blood Negative Urine Nitrate Negative Urine Bilirubin Negative Urine Urobilinogen Normal Ur Leukocyte Esterase Neg Urine WBC (Auto) 2 Urine RBC (Auto) 2
[2017-10-13] MEDS ORDERED: Oxycodone/Acetaminophen 5/325 mg Tab PO PRN (08:12)
--- NOTE | 2017-10-13 09:20 | RAD ---
Chest x-ray single frontal view History: Dizziness. Comparison: 08/25/2017 Findings: Biapical pleural thickening with upper lobe granulomatous changes. Curvilinear opacification at the right lung apex, nonspecific. Focal consolidative changes at the left lung base with associated small left pleural effusion. Mammilated right hemidiaphragm. Right hilar prominence. Enlarged ectatic aorta with calcification at the aortic knob. Cardiomegaly. Degenerative changes in the spine and shoulders. Postsurgical changes of the left proximal humerus. Impression: Biapical pleural thickening with upper lobe granulomatous changes. Curvilinear opacification at the right lung apex, nonspecific. Focal consolidative changes at the left lung base with associated small left pleural effusion. Mammilated right hemidiaphragm. Right hilar prominence. Enlarged ectatic aorta with calcification at the aortic knob. Cardiomegaly.
--- NOTE | 2017-10-13 09:25 | CP.PCM.PN ---
<Bony Evans - Last Filed: 10/13/17 09:22> Subjective - Date & Time of Evaluation Date of Evaluation: 10/13/17 Time of Evaluation: 07:40 - Subjective Subjective: General Surgery Pt S&E, NAEO. Reports mild suprapubic pain. Malone with 2L clear connor urine. Objective - Vital Signs/Intake and Output Vital Signs (last 24 hours): Temp Pulse Resp BP Pulse Ox 99.0 F 81 18 124/63 96 10/13/17 03:12 10/13/17 06:22 10/13/17 06:22 10/13/17 06:22 10/13/17 06:22 Intake and Output: 10/13/17 10/13/17 06:59 18:59 Output Total 1999 Balance -1999 - Medications Medications: Current Medications Amlodipine Besylate (Norvasc) 5 mg PO DAILY [facility] Finasteride (Proscar) 5 mg PO DAILY [facility] Meclizine HCl (Antivert) 25 mg PO Q8 [facility] Last Admin: 10/13/17 07:57 Dose: 25 mg Oxycodone/Acetaminophen (Percocet 5/325 Mg Tab) 1 tab PO Q4H PRN PRN Reason: Pain, moderate (4-7) Stop: 10/16/17 08:13 Pantoprazole Sodium (Protonix Ec Tab) 40 mg PO DAILY [facility] Tamsulosin HCl (Flomax) 0.4 mg PO DAILY [facility] - Labs Labs: 10/12/17 18:07 10/12/17 18:07 - Constitutional Appears: Non-toxic - Head Exam Head Exam: ATRAUMATIC, NORMOCEPHALIC - Eye Exam Eye Exam: EOMI. absent: Scleral icterus - Respiratory Exam Respiratory Exam: NORMAL BREATHING PATTERN. absent: Respiratory Distress - GI/Abdominal Exam GI & Abdominal Exam: Soft, Tenderness (in suprapubic area) - Exam Additional comments: malone in place - Neurological Exam Neurological Exam: Alert, Awake - Skin Skin Exam: Dry, Warm Assessment and Plan - Assessment and Plan (Free Text) Assessment: 82M s/p robotic bilateral inguinal hernia repair POD#6 with urinary retention Plan: - F/U with Urology - all recs appreciated - Continue malone - encourage OOB and ambulation - regular diet - Monitor urine output - Monitor Kidney function - Pain control D/W Dr. Val Evans PGY4 <Rodger Neal - Last Filed: 10/16/17 17:59> Objective - Vital Signs/Intake and Output Vital Signs (last 24 hours): Temp Pulse Resp BP Pulse Ox 97.5 F L 85 16 131/81 97 10/13/17 13:54 10/13/17 13:54 10/13/17 13:54 10/13/17 13:54 10/13/17 13:54 - Labs Labs: 10/12/17 18:07 10/12/17 18:07 Attending/Attestation - Attestation I have personally seen and examined this patient.: Yes I have fully participated in the care of the patient.: Yes I have reviewed all pertinent clinical information, including history, physical exam and plan: Yes Notes (Text): Pt was seen and examined at bedside Agree with above note and assessment Pt is improved symptomatically Leg bag DC home with flomax and finesteride Plan d.w pt in detail F/u in my office next week.
[2017-10-13] MEDS ORDERED: Oxycodone/Acetaminophen 5/325 mg Tab ONE (09:56)
[2017-10-13] MEDS ORDERED: Pantoprazole 40 mg EC Tab PO SCH (10:00)
[2017-10-13 13:54] VITALS: BP 131/81; PULSE 85; RESP 16; TEMP 97.5; O2SAT 97
--- NOTE | 2017-10-13 18:38 | CP.PCM.PN ---
Subjective - Date & Time of Evaluation Date of Evaluation: 10/13/17 Time of Evaluation: 12:20 - Subjective Subjective: clincially same Objective - Vital Signs/Intake and Output Vital Signs (last 24 hours): Temp Pulse Resp BP Pulse Ox 97.5 F L 85 16 131/81 97 10/13/17 13:54 10/13/17 13:54 10/13/17 13:54 10/13/17 13:54 10/13/17 13:54 Intake and Output: 10/13/17 10/13/17 06:59 18:59 Intake Total 240 Output Total 1999 2299 Balance -1999 - Medications Medications: Current Medications Amlodipine Besylate (Norvasc) 5 mg PO DAILY [facility] Last Admin: 10/13/17 09:45 Dose: 5 mg Finasteride (Proscar) 5 mg PO DAILY [facility] Last Admin: 10/13/17 09:54 Dose: 5 mg Heparin Sodium (Porcine) (Heparin) 5,000 units SC Q8 [facility] Meclizine HCl (Antivert) 25 mg PO Q8 [facility] Last Admin: 10/13/17 07:57 Dose: 25 mg Oxycodone/Acetaminophen (Percocet 5/325 Mg Tab) 1 tab PO Q4H PRN PRN Reason: Pain, moderate (4-7) Stop: 10/16/17 08:13 Last Admin: 10/13/17 09:54 Dose: 1 tab Pantoprazole Sodium (Protonix Ec Tab) 40 mg PO DAILY [facility] Last Admin: 10/13/17 09:46 Dose: 40 mg Tamsulosin HCl (Flomax) 0.4 mg PO DAILY [facility] Last Admin: 10/13/17 09:54 Dose: 0.4 mg - Labs Labs: 10/12/17 18:07 10/12/17 18:07 - Constitutional Appears: Well - Head Exam Head Exam: ATRAUMATIC, NORMAL INSPECTION, NORMOCEPHALIC - Eye Exam Eye Exam: EOMI, Normal appearance, PERRL Pupil Exam: NORMAL ACCOMODATION, PERRL - ENT Exam ENT Exam: Mucous Membranes Moist, Normal Exam - Neck Exam Neck Exam: Full ROM, Normal Inspection. absent: Lymphadenopathy - Respiratory Exam Respiratory Exam: Decreased Breath Sounds - Cardiovascular Exam Cardiovascular Exam: REGULAR RHYTHM, +S1, +S2 - GI/Abdominal Exam GI & Abdominal Exam: Soft, Diminished Bowel Sounds - Rectal Exam Rectal Exam: Deferred
== END 2017-10-13 14:57 | disposition home or self-care (01) ==
LOC: C.ER 17:28 → UNDOADMIN 18:32 → C.9E 18:32 → UNDODISIN 10-13 14:57
DX: D62 Acute posthemorrhagic anemia (principal); N28.9 Disorder of kidney and ureter, unspecified; I10 Essential (primary) hypertension

== ENCOUNTER 2018-06-26 08:29 | Emergency (ER) | payer MEDICAID, MEDICARE ==
[2018-06-26 08:29] VITALS: BMI 22.8
[2018-06-26 08:44] VITALS: TEMP 98.1
--- NOTE | 2018-06-26 10:35 | C.PDOC ---
History Of Present Illness 83 year old male with a history of arthritis to the left knee presents to the ED for evaluation of left ankle pain that began last night. Patient reports the pain is worse with movement and no previous ankle pain. Notes he has not taken any medications and ambulates regularly with a cane. Denies changes in sensations, recent travel, trauma, calf pain, and any other associated symptoms. Time Seen by Provider: 06/26/18 08:32 Chief Complaint (Nursing): Lower Extremity Problem/Injury History Per: Patient History/Exam Limitations: no limitations Onset/Duration Of Symptoms: Hrs Current Symptoms Are (Timing): Still Present Recent travel outside of the [place]: No Past Medical History Reviewed: Historical Data, Nursing Documentation, Vital Signs Vital Signs: Last Vital Signs Temp 98.1 F 06/26/18 08:37 Pulse 94 H 06/26/18 08:37 Resp 18 06/26/18 08:37 BP 129/88 06/26/18 08:37 Pulse Ox 100 06/26/18 08:37 - Medical History PMH: Arthritis, Fractures (LEFT SHOULDER/LEFT LEG NON DISPLACED ACCIDENT 06/25/16), HTN Surgical History: Cholecystectomy - [facility] Procedures HOME MANAGEMENT TREATMENT USING ASSIST EQUIPMENT (09/25/16) REPLACE OF L SHOULDER JT WITH REV BL & SOCKT, OPEN APPROACH (09/22/16) REPOSITION LEFT UPPER ARM TENDON, OPEN APPROACH (09/22/16) THERAPEUTIC EXERCISE TREATMENT OF MUSCULOSK LOW BACK/LE (09/25/16) Family History: States: Unknown Family Hx - Social History Hx Alcohol Use: No Hx Substance Use: No - Immunization History Hx Tetanus Toxoid Vaccination: No Hx Influenza Vaccination: Yes Hx Pneumococcal Vaccination: No Review Of Systems Except As Marked, All Systems Reviewed And Found Negative. Musculoskeletal: Positive for: Foot Pain (left ankle.). Negative for: Other (calf pain.) Neurological: Negative for: Weakness, Numbness, Incoordination Physical Exam - Physical Exam Appears: Well, Non-toxic, No Acute Distress Skin: Normal Color, Warm, Dry Head: Atraumatic, Normacephalic Eye(s): bilateral: Normal Inspection, PERRL, EOMI Nose: Normal Oral Mucosa: Moist Neck: Normal ROM, Supple Chest: Symmetrical, No Deformity Cardiovascular: Rhythm Regular Respiratory: Normal Breath Sounds, No Accessory Muscle Use, No Rales, No Rhonchi, No Wheezing, Other (clear to auscultation.) Extremity: Normal ROM, Tenderness (to the lateral aspect of the ankle.), No Calf Tenderness, Capillary Refill (less than 2 seconds), No Swelling, Other (hypertrophic toenails.) Pulses: Left Dorsalis Pedis: Normal, Right Dorsalis Pedis: Normal Neurological/Psych: Oriented x3, Normal Speech, Normal Motor Gait: With Assistance (cane) ED Course And Treatment O2 Sat by Pulse Oximetry: 100 (RA) Pulse Ox Interpretation: Normal Progress Note: Patient sent for X-ray. Duplex: No DVT. Left leg tejinder wrap. Prescribed Norvasc and advised to follow up with PMD within 1-2 days. Pt has not evidence of infection, no vascular changes, no trauma. Instructed to follow up with dulser in 1-2 days . Disposition - Disposition Referrals: Dionte Calderon DPM [Staff Provider] - Disposition: HOME/ ROUTINE Disposition Time: 10:32 Condition: STABLE Additional Instructions: Rest, ice and elevate the area. Follow up with the dulser in 1-2 days. Return to ER if symptoms persist or worsen. Descansa, hielo y eleva la chel. Archana un seguimiento con el podlogo en 1-2 garcia. Regrese a la cristhian de emergencias si los sntomas persisten o empeoran. 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 - Scribe Statement The provider has reviewed the documentation as recorded by the Scribe (Slyvia Chne) All medical record entries made by the Scribe were at my direction and personally dictated by me. I have reviewed the chart and agree that the record accurately reflects my personal performance of the history, physical exam, medical decision making, and the department course for this patient. I have also personally directed, reviewed, and agree with the discharge instructions and disposition.
[2018-06-26 11:37] VITALS: BP 129/81; PULSE 84; RESP 16
--- NOTE | 2018-06-26 13:13 | RAD ---
Date of service: 06/26/2018 PROCEDURE: Left Ankle Radiographs. HISTORY: Left foot Pain. No history of recent/ related trauma provided COMPARISON: None FINDINGS: BONES: Plantar and Achilles Tendon insertion calcaneal spurs. No fracture identified. Moderate osteopenia. JOINTS: Normal. No osteoarthritis. Ankle mortise maintained. Talar dome intact SOFT TISSUES: Normal. OTHER FINDINGS: None. IMPRESSION: No acute findings related to/accounting for the clinical presentation. Additional benign and/or incidental findings described above.
[2018-06-26 16:56] VITALS: O2SAT 100
--- NOTE | 2018-06-28 10:31 | VASCLAB ---
Date of service: 06/26/2018 PROCEDURE: Left Lower Extremity Venous Duplex Exam. HISTORY: Pain PRIORS: None. TECHNIQUE: Left common femoral, femoral, popliteal and posterior tibial, peroneal and great saphenous veins were evaluated. Flow was assessed with color Doppler, compressibility, assessment of phasic flow and augmentation response. Report prepared by NILTON Diana FINDINGS: LEFT: 1. Common Femoral Vein: 1.1. Compressibility - Fully compressible: Thrombus - None : Flow - Phasic: Augmentation -Normal: Reflux - None. 2. Femoral Vein: 2.1. Compressibility - Fully compressible: Thrombus - None: Flow - Phasic: Augmentation -Normal: Reflux - None. 3. Popliteal Vein: 3.1. Compressibility - Fully compressible: Thrombus - None: Flow - Phasic: Augmentation -Normal: Reflux - None. 4. Posterior Tibial Vein: 4.1. Compressibility - Fully compressible: Thrombus - None: Flow - Phasic: Augmentation -Normal: Reflux - None. 5. Peroneal Vein: 5.1. Compressibility - Fully compressible: Thrombus - None: Flow - Phasic: Augmentation -Normal: Reflux - None. 6. Great Saphenous Vein: 6.1. Compressibility - Fully compressible: Thrombus - None: Flow - Phasic: Augmentation - Normal: Reflux - None. OTHER FINDINGS: IMPRESSION: No evidence of deep or superficial vein thrombosis of the left lower extremity with excellent venous flow. Normal valve function noted of the left side. Normal venous flow noted in the right common femoral vein.
== END 2018-06-26 11:36 | disposition home or self-care (01) ==
LOC: C.ER 08:29
DX: M25.572 Pain in left ankle and joints of left foot (principal)